=== PATIENT | male | born 1980 | race Caucasian/White ===

== ENCOUNTER 2019-08-28 11:34 | Day surgery (SDC) | payer OTHER ==
[~2019-08-28] VITALS: Ht 185.4 cm; Wt 83.9 kg
[~2019-08-28 11:34] MED LIST: ALBU90OI INH; AMOX500 PO; AZIT250 PO; CLOBEX; HYDACE5 PO; IBUP200 PO; PRED20 PO; PROM25 PO; PSEU120ER PO; SULTRIDS PO
[2019-08-28] MEDS ORDERED: DULO60 (12:17)
== END 2019-08-28 13:58 | disposition home or self-care (01) ==
LOC: ORSCSDS 11:34
PROVIDERS: Internal Medicine Gastroenterology
PROC: 0DBE8ZX Excision of Large Intestine, Via Natural or Artificial Opening Endoscopic, Diagnostic (ICD-10-PCS; principal; 2019-08-28 13:45)
PROC: 0DBM8ZX Excision of Descending Colon, Via Natural or Artificial Opening Endoscopic, Diagnostic (ICD-10-PCS; principal; 2019-08-28 13:45)
PROC: 0DB98ZX Excision of Duodenum, Via Natural or Artificial Opening Endoscopic, Diagnostic (ICD-10-PCS; principal; 2019-08-28 13:45)
PROC: 0DBN8ZX Excision of Sigmoid Colon, Via Natural or Artificial Opening Endoscopic, Diagnostic (ICD-10-PCS; principal; 2019-08-28 13:45)
PROC: 0DB68ZX Excision of Stomach, Via Natural or Artificial Opening Endoscopic, Diagnostic (ICD-10-PCS; principal; 2019-08-28 13:45)
PROC: 0DBL8ZX Excision of Transverse Colon, Via Natural or Artificial Opening Endoscopic, Diagnostic (ICD-10-PCS; principal; 2019-08-28 13:45)
DX: R19.4 Change in bowel habit (principal); D12.3 Benign neoplasm of transverse colon; K63.5 Polyp of colon; K57.30 Diverticulosis of large intestine without perforation or abscess without bleeding; K64.8 Other hemorrhoids; K44.9 Diaphragmatic hernia without obstruction or gangrene; K20.9 Esophagitis, unspecified; R10.13 Epigastric pain; F41.8 Other specified anxiety disorders; F17.210 Nicotine dependence, cigarettes, uncomplicated; I10 Essential (primary) hypertension
CPT/HCPCS: 88305; 88342; J2250; J2704; J7120

== ENCOUNTER → 2019-10-23 | Outpatient (CLI) | payer OTHER ==
[~2019-10-23] MED LIST changes: +DULO60
[2019-10-23 11:18] LABS: Source, Urine Clean Catch
[2019-10-23 12:25] LABS: Bilirubin, Urine Neg (Neg); Blood, Urine Neg (Neg); Glucose Qualitative, Urine Neg (Neg); Ketones, Urine Neg (Neg); Leukocyte Esterase, Urine Neg (Neg); Nitrite, Urine Neg (Neg); Protein, Urine Neg (Neg); Urobilinogen, Urine NORM (Normal)
[2019-10-23 12:44] LABS: Appearance, Urine Clear (Clear); Color, Urine Yellow (P-Yellow)
== END | disposition home or self-care (01) ==
LOC: LAB SHORT 11:16 → OLS 11:16
PROVIDERS: Physician Assistant
DX: R31.21 Asymptomatic microscopic hematuria (principal)
CPT/HCPCS: 81003

== ENCOUNTER 2020-12-03 11:11 | Emergency (ER) | payer OTHER ==
[~2020-12-03] VITALS: Ht 185.4 cm; Wt 90.7 kg
== END 2020-12-03 11:50 | disposition home or self-care (01) ==
LOC: ER 11:11
DX: G57.62 Lesion of plantar nerve, left lower limb (principal); Z88.1 Allergy status to other antibiotic agents; Z79.899 Other long term (current) drug therapy; F17.200 Nicotine dependence, unspecified, uncomplicated
CPT/HCPCS: 99283

== ENCOUNTER → 2021-02-28 | Outpatient (CLI) | payer OTHER ==
[2021-03-02 15:25] LABS: CORONAVIRUS (COVID19) CSH-NRL Positive (Negative)
== END ==
LOC: LAB SHORT 15:38 → LAB 15:38
PROVIDERS: Physician Assistant Medical
DX: Z20.822 Contact with and (suspected) exposure to COVID-19 (principal)
CPT/HCPCS: U0003

== ENCOUNTER 2023-02-01 04:49 | Day surgery (SDC) | payer OTHER ==
[2023-02-01 15:05] VITALS: BP 134/82
[2023-02-01] MEDS ORDERED: Prinivil10 MG PO (15:07)
[2023-02-01] MEDS ORDERED: MULTIPLE VITAM1 EACH PO (15:07)
== END 2023-02-01 17:25 | disposition home or self-care (01) ==
LOC: ATC 04:49
DX: L40.0 Psoriasis vulgaris (principal); Z88.1 Allergy status to other antibiotic agents
CPT/HCPCS: 96413; 96415; J7050; Q5103

== ENCOUNTER 2023-02-15 01:02 | Day surgery (SDC) | payer OTHER ==
[~2023-02-15 01:02] MED LIST changes: +MULTIPLE VITAM1 EACH PO; +Prinivil10 MG PO
[2023-02-15 14:09] VITALS: BP 121/76
[2023-02-15] MEDS ORDERED: BUSP5 PO (14:12)
== END 2023-02-15 16:49 | disposition home or self-care (01) ==
LOC: ATC 01:02
DX: L40.0 Psoriasis vulgaris (principal); Z79.899 Other long term (current) drug therapy
CPT/HCPCS: 96413; 96415; J7050; Q5103

== ENCOUNTER 2023-06-13 02:43 | Day surgery (SDC) | payer OTHER ==
[~2023-06-13] VITALS: Wt 91.9 kg
[~2023-06-13 02:43] MED LIST changes: +BUSP5 PO
[2023-06-13 14:15] VITALS: BP 144/87
== END 2023-06-13 16:40 | disposition home or self-care (01) ==
LOC: ATC 02:43
DX: L40.0 Psoriasis vulgaris (principal); L81.8 Other specified disorders of pigmentation; Z79.899 Other long term (current) drug therapy
CPT/HCPCS: 96413; 96415; J7050; Q5103

== ENCOUNTER 2023-06-27 02:32 | Day surgery (SDC) | payer OTHER ==
[2023-06-27 14:12] VITALS: BP 141/92
== END 2023-06-27 16:44 | disposition home or self-care (01) ==
LOC: ATC 02:32
DX: L40.0 Psoriasis vulgaris (principal); L81.8 Other specified disorders of pigmentation; F17.210 Nicotine dependence, cigarettes, uncomplicated; Z88.1 Allergy status to other antibiotic agents; Z79.899 Other long term (current) drug therapy
CPT/HCPCS: 96413; 96415; J7050; Q5103